=== PATIENT | female | born 1990 | race Caucasian/White ===

== ENCOUNTER → 2020-12-24 14:17 | Outpatient (BNVA) | payer MEDICAID, SELFPAY | PROVIDERS: Visit Provider Nurse Practitioner Women's Health | DX: Z34.80 Encounter for supervision of other normal pregnancy, unspecified trimester (principal) | CPT/HCPCS: 81000; 86803 ==

== ENCOUNTER → 2021-01-07 08:16 | Outpatient (BNVA) | payer MEDICAID, SELFPAY | PROVIDERS: Visit Provider Obstetrics & Gynecology | DX: O34.219 Maternal care for unspecified type scar from previous cesarean delivery (principal); Z64.1 Problems related to multiparity; O09.42 Supervision of pregnancy with grand multiparity, second trimester; Z3A.24 24 weeks gestation of pregnancy | CPT/HCPCS: 80307; 81000; 87086; 87491; 87591 ==

== ENCOUNTER → 2021-02-04 10:27 | Outpatient (BNVA) | payer MEDICAID, SELFPAY | PROVIDERS: Visit Provider Obstetrics & Gynecology | DX: O34.219 Maternal care for unspecified type scar from previous cesarean delivery (principal); Z64.1 Problems related to multiparity | CPT/HCPCS: 82950; 84315; 85007; 85025 ==

== ENCOUNTER → 2021-03-04 09:34 | Outpatient (BNVA) | payer MEDICAID, SELFPAY | PROVIDERS: Visit Provider Obstetrics & Gynecology | DX: O34.219 Maternal care for unspecified type scar from previous cesarean delivery (principal); Z64.1 Problems related to multiparity | CPT/HCPCS: 81000 ==

== ENCOUNTER → 2021-03-19 09:21 | Outpatient (BNVA) | payer MEDICAID, SELFPAY | PROVIDERS: Visit Provider Obstetrics & Gynecology | DX: Z34.80 Encounter for supervision of other normal pregnancy, unspecified trimester (principal) | CPT/HCPCS: 81000 ==

== ENCOUNTER → 2021-04-03 08:56 | Outpatient (BNVA) | payer MEDICAID, SELFPAY | PROVIDERS: Visit Provider Obstetrics & Gynecology | DX: O34.219 Maternal care for unspecified type scar from previous cesarean delivery (principal); Z64.1 Problems related to multiparity | CPT/HCPCS: 81000; 87081 ==

== ENCOUNTER → 2021-04-09 08:34 | Outpatient (BNVA) | payer MEDICAID, SELFPAY | PROVIDERS: PCP Internal Medicine; Visit Provider Obstetrics & Gynecology | DX: O34.219 Maternal care for unspecified type scar from previous cesarean delivery (principal); Z64.1 Problems related to multiparity | CPT/HCPCS: 81000 ==

== ENCOUNTER → 2021-04-16 08:51 | Outpatient (BNVA) | payer MEDICAID, SELFPAY | PROVIDERS: PCP Internal Medicine; Visit Provider Obstetrics & Gynecology | DX: O34.219 Maternal care for unspecified type scar from previous cesarean delivery (principal); Z64.1 Problems related to multiparity | CPT/HCPCS: 81000 ==

== ENCOUNTER → 2021-04-23 09:02 | Outpatient (BNVA) | payer MEDICAID, SELFPAY | PROVIDERS: PCP Internal Medicine; Visit Provider Obstetrics & Gynecology | DX: Z34.80 Encounter for supervision of other normal pregnancy, unspecified trimester (principal) | CPT/HCPCS: 81000 ==

== ENCOUNTER 2021-04-27 01:30 | Outpatient (CLI) | payer MEDICAID, SELFPAY ==
[2021-04-27] VITALS (8 sets, daily range): BP systolic 100–116; BP diastolic 55–68; PULSE 60–75; RESP 16; TEMP 35.9; BMI 31.2
--- NOTE | 2021-05-07 13:11 | PC.NURSE ---
Admission order entered at this time. Discharge order was placed at time of visit.
== END 2021-04-27 04:15 | disposition home or self-care (01) ==
LOC: OPOB 01:33 → OBGYN 01:36
PROVIDERS: PCP Internal Medicine; Visit Provider Obstetrics & Gynecology
DX: O26.899 Other specified pregnancy related conditions, unspecified trimester (principal); Z3A.00 Weeks of gestation of pregnancy not specified; R10.9 Unspecified abdominal pain
CPT/HCPCS: 59025; 99211

== ENCOUNTER → 2021-04-30 13:44 | Outpatient (BNVA) | payer MEDICAID, SELFPAY | PROVIDERS: PCP Internal Medicine; Visit Provider Obstetrics & Gynecology | DX: Z34.80 Encounter for supervision of other normal pregnancy, unspecified trimester (principal) | CPT/HCPCS: 81000 ==

== ENCOUNTER 2021-05-03 01:30 | Inpatient (IN) | payer MEDICAID, SELFPAY ==
[2021-05-02 21:04] VITALS: TEMP 36.2
[2021-05-02 21:05] VITALS: BP 105/55; PULSE 71
[2021-05-02 22:19] VITALS: BMI 31.7
[2021-05-03] VITALS (22 sets, daily range): BP systolic 93–140; BP diastolic 51–77; PULSE 56–88; RESP 15–16; TEMP 36.1–37.6
[2021-05-03 02:45] LABS: Basophils # 0.1 10^3/uL (0.0-0.1); Basophils % 0.6 %; Eosinophils # 0.1 10^3/uL (0.0-0.8); Eosinophils % 0.8 %; Hematocrit 37.2 % (37.0-47.0); Hemoglobin 12.4 g/dL (11.5-15.3); Lymphocytes # 1.9 10^3/uL (0.8-4.8); Lymphocytes % 19.5 %; Mean Corpuscular HGB Conc 33.3 g/dL (30.0-36.0); Mean Corpuscular Hemoglobin 31.3 pg (28.0-34.0); Mean Corpuscular Volume 93.9 fL (81-99); Mean Platelet Volume 13.7 fL (7.4-10.4); Monocytes # 0.6 10^3/uL (0.2-0.9); Monocytes % 5.6 %; Neutrophils # 7.08 10^3/uL (1.8-7.7); Neutrophils % 72.6 %; Nucleated Red Blood Cells % 0 %; Platelet Count 105 10^3/cmm (130-400); Red Blood Count 3.96 10^6/uL (4.1-5.3); Red Cell Distribution Width 12.7 % (12.1-15.1); White Blood Count 9.8 10^3/uL (4.0-10.0)
--- NOTE | 2021-05-03 02:58 | ANES.PREANE2 ---
Pre-Anesthetic Assessment Pre-Anesthetic Assessment: Height/Weight: Height 1.63 m Weight 83.915 kg Temp Pulse BP 97.5 F L 69 99/56 05/03/21 01:18 05/03/21 01:18 05/03/21 01:18 Preop Diagnosis: IUP Proposed Procedure: Epidural Familial anesthetic complications: None Was Beta Nba taken within 24 hours: N/A Was Clonidine taken within 24 hours: N/A Last intake: Solids > 8 hrs Drinking water throughout day Social: Social History: No alcohol and No tobacco Exam: Pre-Anes Outpt Exam: alert, oriented x 3, clear to auscultation bilaterally and regular rate & rhythm Airway: Cervical ROM: WNL MP: 1 Dentition: Full Anesthetic Plan: ASA status: 2 Anesthesia: Regional (specify below) Other: Desires natural , epidural prn, consented for spinal Risk of > 500 ml blood loss (7ml/kg in children): Yes, adequate IV access and fluids planned PFSH Anesthesia PFSH: Medical History No pertinent past medical history neghx: htn,dm,thyroid,dvt/pe,herpes ----denies partner with herpes PCP: Dr. Mcgregor Surgical History Hx of section (~2015) Hx of cholecystectomy (~2012) Hx of wisdom tooth extraction (~2014) Family History Denies family history of Colon cancer Ovarian cancer Diabetes Heart disease Hypercholesteremia Breast cancer Hypertension Uterine cancer Thyroid disease Stroke Social History Smoking and tobacco status: never smoked Alcohol intake: never Female Reproductive History: : 10 Data Anesthesia CBC & Chem 7: 05/03/21 01:55 Other Labs: Laboratory Results - last 48 hr 05/03/21 01:55 WBC 9.8 RBC 3.96 L Hgb 12.4 Hct 37.2 MCV 93.9 MCH 31.3 MCHC 33.3 RDW 12.7 Plt Count 105 L MPV 13.7 H Neut % (Auto) 72.6 Lymph % (Auto) 19.5 Alpine % (Auto) 5.6 Eos % (Auto) 0.8 Baso % (Auto) 0.6 Neut # (Auto) 7.08 Lymph # (Auto) 1.9 Alpine # (Auto) 0.6 Eos # (Auto) 0.1 Baso # (Auto) 0.1 Nucleated RBC % (auto) 0 Nucleated RBCs # 0.0 Cardiac Studies: No Data to Display
--- NOTE | 2021-05-03 05:07 | PM.DELIVERY ---
Delivery Note: Date of delivery: May 03, 2021 - PRE-DELIVERY DIAGNOSIS: 30-year-old 10 para 4-0-5-4 at 40 weeks and 4 days gestation Active labor Previous delivery x1 desiring trial of labor Grand multiparity with this delivery POST-DELIVERY DIAGNOSIS: Vaginal after PROCEDURE: Vaginal after on 05/03/2021 ANESTHESIA: Local anesthesia with 2% lidocaine DELIVERING PHYSICIAN: Janee Li FACSTEPHAN PRE-DELIVERY COURSE: Ms. De Jesus is a 30-year-old 10 para 4-0-5-4 at 40 weeks and 3 days gestation who presented to labor and delivery on 05/02/2021 with reports of contractions. She has a history significant for a previous delivery and has had 1 successful and desired trial of labor with this delivery as well. She had no complications in the . -When she presented to labor and delivery she was noted to be 3 cm 60% and -2 station and an hour later she was 4 cm 60% and -2 station. She was observed for 2 more hours and was noted to be 5 cm 60% and -2 station at 11 PM. She was admitted in active labor. On exam at 2 AM she was noted to be 6 to 7 cm 90% and -1 station. tracing thus far was category 1 and she was darrin every 2 to 5 minutes and was breathing through them. She did not want an epidural. Artificial rupture of membranes was performed at 3:56 AM with clear fluid and she was 7 to 8 cm, 90% and 0 station at this time. She made rapid cervical change and was fully dilated at 4:23 AM ready to push DELIVERY NOTE: She was set up in lithotomy position and was pushing effectively. She was noted to be +3 station and continued pushing well. The head delivered in BEKA position, tight nuchal cord x1 was present which was unable to be reduced. The shoulders and rest of the body followed with her next push and delivered through the cord without any difficulty. The baby's mouth and nose were suctioned and the baby was placed on the mother's belly. the cord was clamped and cut. The placenta delivered spontaneously intact with membranes and was discarded. The fundus was noted to be firm and well contracted. The vagina and cervix were inspected and no cervical or sulcal lacerations were noted. A first-degree vaginal laceration was noted which was repaired with 3-0 Vicryl in a [id number] suture after infiltrating the area with lidocaine. Good hemostasis and reapproximation was obtained. Baby girl, Rosa born at 4:24 AM on 05/03/2020 with 7/9, weighing 8 pounds 0 ounces, 3615 g, 21 inches long. Placenta was delivered spontaneously intact with membranes at 4:26 AM.. Cotyledon were intact , centrally inserted umbilical cord with 3 vessels noted. Estimated blood loss 200 mL. Complications-none, both baby and mother were left to recover in a stable condition. This documentation was created by [employer] supervisor contact lens software (known for inherent supervisor contact lens error). Every effort was made to assure accuracy of supervisor contact lens. Any obvious errors or omissions should be clarified with the author of the document. Coding Level of Care Code Acute Primary Special Educator for Christopher Marie
--- NOTE | 2021-05-03 07:00 | PC.NURSE ---
Pt up to bathroom without difficulty. Void 400mL. Amina care/dermoplast. Pad/gown changed. Complete linen change.
[2021-05-03] MEDS: lanolin oint 7 gm 1 APPLIC TOPICAL (07:17)
[2021-05-03] MEDS: benzocaine-menthol 78 gm Canister 1 SPRAY TOPICAL (07:18)
[2021-05-03] MEDS: docusate sodium 100 mg Capsule PO (09:00)
[2021-05-03] MEDS: prenatal vitamin Capsule 1 CAP PO (09:00)
[2021-05-03] MEDS: ibuprofen 800 mg tablet PO ×3 (09:00→20:53)
[2021-05-03 17:31] LABS: Hematocrit 36.8 % (37.0-47.0); Hemoglobin 12.4 g/dL (11.5-15.3); Mean Corpuscular HGB Conc 33.7 g/dL (30.0-36.0); Mean Corpuscular Hemoglobin 31.9 pg (28.0-34.0); Mean Corpuscular Volume 94.6 fL (81-99); Mean Platelet Volume 13.2 fL (7.4-10.4); Platelet Count 111 10^3/cmm (130-400); Red Blood Count 3.89 10^6/uL (4.1-5.3); Red Cell Distribution Width 12.6 % (12.1-15.1); White Blood Count 9.4 10^3/uL (4.0-10.0)
[2021-05-04 05:12] VITALS: BP 104/57; PULSE 71
--- NOTE | 2021-05-04 07:09 | PM.OBGYDC ---
Discharge Providers INDUSTRIAL ORGANIZATION MANAGER Date of Admission: 05/03/21 01:30 Date of Discharge: 05/04/21 Attending Provider at Admission: Janee Quinn MD Attending Provider at Discharge: Janee Quinn MD Primary Care Provider: PRE-DELIVERY DIAGNOSIS: 30-year-old 10 para 4-0-5-4 at 40 weeks and 4 days gestation Active labor GBS negative Previous delivery x1 desiring trial of labor Grand multiparity with this delivery POST-DELIVERY DIAGNOSIS: Vaginal after PROCEDURE: Vaginal after on 05/03/2021 ANESTHESIA: Local anesthesia with 2% lidocaine DELIVERING PHYSICIAN: Janee Li FACOG PRE-DELIVERY COURSE: Ms. De Jesus is a 30-year-old 10 para 4-0-5-4 at 40 weeks and 3 days gestation who presented to labor and delivery on 05/02/2021 with reports of contractions. She has a history significant for a previous delivery and has had 1 successful and desired trial of labor with this delivery as well. She had no complications in the . -When she presented to labor and delivery she was noted to be 3 cm 60% and -2 station and an hour later she was 4 cm 60% and -2 station. She was observed for 2 more hours and was noted to be 5 cm 60% and -2 station at 11 PM. She was admitted in active labor. On exam at 2 AM she was noted to be 6 to 7 cm 90% and -1 station. tracing thus far was category 1 and she was darrin every 2 to 5 minutes and was breathing through them. She did not want an epidural. Artificial rupture of membranes was performed at 3:56 AM with clear fluid and she was 7 to 8 cm, 90% and 0 station at this time. She made rapid cervical change and was fully dilated at 4:23 AM ready to push DELIVERY NOTE: She was set up in lithotomy position and was pushing effectively. She was noted to be +3 station and continued pushing well. The head delivered in BEKA position, tight nuchal cord x1 was present which was unable to be reduced. The shoulders and rest of the body followed with her next push and delivered through the cord without any difficulty. The baby's mouth and nose were suctioned and the baby was placed on the mother's belly. the cord was clamped and cut. The placenta delivered spontaneously intact with membranes and was discarded. The fundus was noted to be firm and well contracted. The vagina and cervix were inspected and no cervical or sulcal lacerations were noted. A first-degree vaginal laceration was noted which was repaired with 3-0 Vicryl in a [id number] suture after infiltrating the area with lidocaine. Good hemostasis and reapproximation was obtained. Baby girl, Rosa born at 4:24 AM on 05/03/2020 with 7/9, weighing 8 pounds 0 ounces, 3615 g, 21 inches long. Placenta was delivered spontaneously intact with membranes at 4:26 AM.. Cotyledon were intact , centrally inserted umbilical cord with 3 vessels noted. Estimated blood loss 200 mL. Complications-none, both baby and mother were left to recover in a stable condition. HOSPITAL COURSE: She underwent an uncomplicated vaginal after on 05/03/2021. She did well on day 0 and was ambulating well, tolerating regular diet, voiding freely, passing flatus. She was breast-feeding without difficulty and bonding well with her daughter. Pain was well-controlled with by mouth pain medication. She denied nausea, vomiting, fever, chills, shortness of breath, leg pain. She had moderate vaginal bleeding. On day # 1 she continued to do well with stable vital signs and stable hemoglobin at 12.4. She was discharged home on day 1 in a stable condition, as she desired early discharge. Warning signs for endometritis, mastitis, DVT/PE were reviewed with her. Post delivery activity restrictions were also reviewed with her at all her questions were answered to her satisfaction. She plans on using natural methods for contraception. EXAM AT DISCHARGE: Gen.: No acute distress Heart: S1-S2 heard, regular rate and rhythm Lungs: Clear to auscultation bilaterally Abdomen: Soft, fundus firm below umbilicus Legs: No calf tenderness, trace bilateral pitting pedal edema. CONDITION AT DISCHARGE: Stable This documentation was created by [employer] delivery driver software (known for inherent delivery driver error). Every effort was made to assure accuracy of delivery driver. Any obvious errors or omissions should be clarified with the author of the document. Reason for Visit Reason for Visit: contractions Information Peripartum Data: Infant Delivery Method: Vaginal Discharge Data Data Completed and Pending: Labs from last 24 hours 05/03/21 17:10 WBC 9.4 RBC 3.89 L Hgb 12.4 Hct 36.8 L MCV 94.6 MCH 31.9 MCHC 33.7 RDW 12.6 Plt Count 111 L MPV 13.2 H Vitals: Last Vital Signs Temp 98.5 F 05/03/21 16:33 Pulse 71 05/04/21 05:12 Resp 16 05/03/21 16:33 BP 104/57 05/04/21 05:12 Discharge Plan Discharge Prescriptions: No Action prenat.vits,jalil,oak-mjmq-xjgjn Tablet 1 tab PO DAILY RF: 0 Discharge Attestations INDUSTRIAL ORGANIZATION MANAGER Time Spent in Discharge Care*: greater than 30 min Coding Level of Care Code Acute Readers' Advisory Service Librarian for Christopher Marie
[2021-05-04] MEDS: ibuprofen 800 mg tablet PO (08:06)
[2021-05-04] MEDS: prenatal vitamin Capsule 1 CAP PO (08:07)
[2021-05-04] MEDS: docusate sodium 100 mg Capsule PO (08:07)
[2021-05-04 09:14] VITALS: TEMP 36.1
[2021-05-04 09:15] VITALS: BP 113/66; PULSE 72
[2021-05-04 09:20] VITALS: RESP 16
[2021-05-04 09:21] VITALS: RESP 16
== END 2021-05-04 09:43 | disposition home or self-care (01) | DRG 806 ==
LOC: OPOB 02:02 → OBGYN 02:02
PROVIDERS: Admitting Provider Obstetrics & Gynecology; PCP Internal Medicine; Visit Provider Obstetrics & Gynecology
DX: O34.219 Maternal care for unspecified type scar from previous cesarean delivery (principal); O71.4 Obstetric high vaginal laceration alone; Z37.0 Single live birth; O48.0 Post-term pregnancy; O69.81X0 Labor and delivery complicated by cord around neck, without compression, not applicable or unspecified; Z3A.40 40 weeks gestation of pregnancy; Z64.1 Problems related to multiparity
CPT/HCPCS: 36415; 59025; 59409; 85025; 85027; 86850; 86900; 99211

== ENCOUNTER → 2021-10-12 11:37 | Outpatient (BNVA) | payer MEDICAID, SELFPAY | PROVIDERS: PCP Internal Medicine; Visit Provider Obstetrics & Gynecology | DX: Z12.4 Encounter for screening for malignant neoplasm of cervix (principal) | CPT/HCPCS: 87624 ==

== ENCOUNTER 2021-12-25 16:32 | Emergency (ER) | payer MEDICAID, SELFPAY ==
[2021-12-25 16:39] VITALS: BP 121/61; PULSE 63; RESP 16; TEMP 36.6; O2SAT 96; BMI 27.4
--- NOTE | 2021-12-25 17:17 | ED_ITS ---
HPI - Wound/Laceration General: Chief Complaint: Wound/Laceration Stated Complaint: R cut foot bleeding Time Seen by Provider: 12/25/21 17:01 History of Present Illness: Patient is a 31-year-old female comes to the ED with a laceration on top of right foot. Injury occurred several hours prior to arrival. Patient says she was working on cutting some fabric and small circular blade that she uses dropped and hit her mid foot causing a laceration. She immediately rinsed it off with some cold water and placed a bandage on it. She states she is up-to-date on her tetanus. Associated symptoms: Denies chills, fever(s), nausea or vomiting Review of Systems Const: Denies: fever(s), chills or fatigue Eyes: Denies: change in vision or eye discomfort ENMT: Denies: throat pain, odynophagia, nasal discharge or nasal congestion Card: Denies: chest pain, palpitations, edema, swelling of feet/ankles, dyspnea on exertion or orthopnea Resp: Denies: dyspnea, productive cough or non-productive cough GI: Denies: abdominal pain, nausea, vomiting, diarrhea, constipation or hematochezia : Denies: flank pain, dysuria or hematuria Musc: Denies: neck pain, back pain or extremity swelling Skin/Breast: Reports: new lesions (laceration to right foot); Denies: rash Neuro: Denies: headache(s), numbness in extremities or weakness in extremities COUNT INCLUDES THE [facility] ED PFSH: Medical History No pertinent past medical history neghx: htn,dm,thyroid,dvt/pe,herpes ----denies partner with herpes PCP: Dr. Mcgregor Surgical History Hx of section (~2015) Hx of cholecystectomy (~2012) Hx of wisdom tooth extraction (~2014) Family History Denies family history of Colon cancer Ovarian cancer Diabetes Heart disease Hypercholesteremia Breast cancer Hypertension Uterine cancer Thyroid disease Stroke Social History Smoking and tobacco status: never smoked Alcohol intake: never Physical Exam Const: COMMON NORMALS: no acute distress, patient oriented x3, healthy appearing and alert GENERAL APPEARANCE: cooperative and comfortable HENMT: COMMON NORMALS: normocephalic HEAD & SCALP: normocephalic MOUTH: Normal oral and palatal mucosa present THROAT: posterior oropharynx normal and uvula midline Neck/C-Spine: COMMON NORMALS: supple GENERAL: Yes normal visual inspection Resp: COMMON NORMALS: normal respiratory effort, No retractions, No use of accessory muscles and clear to auscultation bilaterally AUSCULTATION: clear to auscultation bilaterally Cardio: COMMON NORMALS: regular rate, regular rhythm, S1 normal heart sound pr esent, S2 normal heart sound present, No gallops present (Cardio), No clicks present (Cardio), No murmurs present (Cardio) and Peripheral pulses 2+ throughout RATE: regular rate RHYTHM: regular rhythm HEART SOUNDS: S1 normal heart sound present and S2 normal heart sound present PERIPHERAL PULSES: Peripheral pulses 2+ throughout GI: COMMON NORMALS: Normal to inspection, nondistended, normoactive bowel sounds present, Soft to palpation, non-tender and no masses PALPATION: Yes Soft to palpation : COMMON NORMALS: Yes no CVA tenderness BLADDER/KIDNEY EXAM: Yes no CVA tenderness Back/Pelvis: COMMON NORMALS: no CVA tenderness Neuro: COMMON NORMALS: patient oriented x3 and moves all extremities SENSORIUM/ORIENTATION: Yes alert Skin: NARRATIVE SKIN EXAM: Right foot-superficial linear 0.5 cm laceration at midfoot region. GENERAL SKIN EXAM: dry skin Procedures Laceration Laceration 1: Site: lower extremity (foot) Side (If applicable): right Size (cm): 0.5 Description: linear and clean Depth: simple, single layer Local Anesthetic: lidocaine 1% Amount of anesthesia used (mL): 5 Pre-repair: irrigated extensively (Irrigated extensively with normal saline. And skin cleaned with iodine swab) Skin layer closed with: nylon Size (cm): 4-0 Number of sutures: 2 Technique: simple, interrupted Course Vital Signs: Vital signs: Vital Signs Temperature 97.9 F 12/25/21 16:39 Pulse Rate 63 12/25/21 16:39 Respiratory Rate 16 12/25/21 16:39 Blood Pressure 121/61 12/25/21 16:39 Pulse Oximetry 96 12/25/21 16:39 MDM - Wound/Laceration Medical Decision Making Patient is a 31-year-old female comes to the ED with a laceration to right foot. Laceration is small and superficial and superficial. Patient is up-to-date on her tetanus. Laceration site was irrigated extensively with normal saline and skin cleaned with iodine swab. Lidocaine 1% was used as local and 2 sutures were placed to close laceration site. Patient was discharged home and told to follow-up with PCP to have sutures removed in 7 to 10 days. Return to ED precautions given. Patient understood and agreed with plan. Discharge Plan Discharge Patient Disposition: Home Clinical Impression: Laceration of foot Qualifiers: Encounter type: initial encounter Laterality: right Qualified Code(s): S91.311A - Laceration without foreign body, right foot, initial encounter Condition: Stable Prescriptions: No Action No Known Home Medications 0RF Discharge Orders: Discharge ED (Routine); Ordered 12/25/21 Ordered By: Pranav Jefferson Referrals: Maria Ines Mcgregor MD [Primary Care Provider] - Discharge Diet: Regular Discharge Activity: Increase activity as tolerated Patient Instructions: Laceration (DC) Activity Restrictions/Additional Instructions: Keep laceration site clean and dry for the next 24 hours. Clean with soapy water daily then apply triple antibiotic ointment and bandage. Watch for signs of infection such as redness, warmth, increased tenderness and puslike drainage. If you see the signs of infection return to the ED, urgent care or PCP for reevaluation. call your PCP to schedule a follow-up appointment for reevaluation and suture removal in about 7- 10 days. Follow discharge plans as discussed. You can return to the ED if symptoms worsen. Coding Level of Care Code ED Step Down Nurse for Christopher Marie Exam Comprehensive
[2021-12-25] MEDS: lidocaine 1% INJ 20 mL INJECTION (18:04)
[2021-12-25] MEDS: neomycin-poly-bacitracin oint 0.9 gm Pkt 1 APPLIC TOPICAL (18:04)
== END 2021-12-25 18:05 | disposition home or self-care (01) ==
PROVIDERS: Emergency Provider Physician Assistant; PCP Internal Medicine
DX: S91.311A Laceration without foreign body, right foot, initial encounter (principal); W26.0XXA Contact with knife, initial encounter
CPT/HCPCS: 99283

== ENCOUNTER → 2022-08-25 11:31 | Outpatient (BNVA) | payer MEDICAID, SELFPAY | PROVIDERS: PCP Internal Medicine; Visit Provider Family Medicine | DX: N80.9 Endometriosis, unspecified (principal); Z39.2 Encounter for routine postpartum follow-up; R53.83 Other fatigue; R23.2 Flushing; F41.9 Anxiety disorder, unspecified | CPT/HCPCS: 80053; 82672; 83540; 84144; 84403; 84443; 85025 ==

== ENCOUNTER 2022-10-22 10:11 | Outpatient (CLI) | payer MEDICAID, SELFPAY ==
--- NOTE | 2022-10-22 10:22 | US_ITS ---
WS: [id number] Transvaginal and transabdominal PELVIC ULTRASOUND HISTORY: N80.9 - Endometriosis, unspecified COMPARISON: None available. Uterus: 7.7 cm x 6.1 cm x 4.4 cm. Very slightly retroflexed uterus. No fibroid or mass. Endometrium: 1.1 cm. Normal homogeneity and size. Right ovary: 3.7 cm x 2.6 cm x 2.4 cm; no solid or cystic mass. Thick-walled corpus luteal cyst RIGHT ovary with crenulated oglesby suggesting collapsing corpus luteum measuring 1.8 x 1.8 x 1.8 cm. No maykel id mass or cyst. Left ovary: 2.6 cm x 3.6 cm x 1.5 cm; no solid or cystic mass. Normal vascularity. Small follicle. Ma ximum diameter 1.2 cm. No free fluid in the cul-de-sac. US/US pelvic complete* [id number] IMPRESSION: 1. Normal endometrium. 2. No endometriomas are identified. 3. No solid ovarian mass or adnexal mass.
== END 2022-10-22 10:12 | disposition home or self-care (01) ==
LOC: RAD 10:11
PROVIDERS: PCP Internal Medicine; Visit Provider Family Medicine
DX: N80.9 Endometriosis, unspecified (principal)
CPT/HCPCS: 76856

== ENCOUNTER → 2023-06-21 10:17 | Outpatient (BNVA) | payer MEDICAID, SELFPAY | PROVIDERS: PCP Internal Medicine; Visit Provider Obstetrics & Gynecology | DX: O26.90 Pregnancy related conditions, unspecified, unspecified trimester (principal); Z3A.00 Weeks of gestation of pregnancy not specified | CPT/HCPCS: 81025 ==

== ENCOUNTER → 2023-07-08 09:50 | Outpatient (BNVA) | payer MEDICAID, SELFPAY | PROVIDERS: PCP Internal Medicine; Visit Provider Nurse Practitioner Women's Health | DX: Z34.80 Encounter for supervision of other normal pregnancy, unspecified trimester (principal) | CPT/HCPCS: 81000 ==

== ENCOUNTER → 2023-07-19 15:28 | Outpatient (BNVA) | payer MEDICAID, SELFPAY | PROVIDERS: PCP Internal Medicine; Visit Provider Nurse Practitioner Women's Health | DX: Z36.87 Encounter for antenatal screening for uncertain dates (principal) | CPT/HCPCS: 76801 ==

== ENCOUNTER → 2023-08-11 12:00 | Outpatient (BNVA) | payer MEDICAID, SELFPAY | PROVIDERS: PCP Internal Medicine; Visit Provider Obstetrics & Gynecology | DX: Z34.80 Encounter for supervision of other normal pregnancy, unspecified trimester (principal) | CPT/HCPCS: 80307; 81000; 85027; 86592; 86762; 86803; 86850; 86900; 87086; 87340; 87491; 87591; 87624; 87806 ==

== ENCOUNTER → 2023-08-31 10:22 | Outpatient (BNVA) | payer MEDICAID, SELFPAY | PROVIDERS: PCP Internal Medicine; Visit Provider Nurse Practitioner Women's Health | DX: Z34.80 Encounter for supervision of other normal pregnancy, unspecified trimester (principal); D69.6 Thrombocytopenia, unspecified; Z98.891 History of uterine scar from previous surgery; R87.612 Low grade squamous intraepithelial lesion on cytologic smear of cervix (LGSIL); R51.9 Headache, unspecified | CPT/HCPCS: 81000; 85025; 87491; 87591 ==

== ENCOUNTER → 2023-09-28 14:31 | Outpatient (BNVA) | payer MEDICAID, SELFPAY | PROVIDERS: PCP Internal Medicine; Visit Provider Nurse Practitioner Women's Health | DX: Z34.82 Encounter for supervision of other normal pregnancy, second trimester (principal) | CPT/HCPCS: 76805 ==

== ENCOUNTER → 2023-10-03 08:19 | Outpatient (BNVA) | payer MEDICAID, SELFPAY | PROVIDERS: PCP Internal Medicine; Visit Provider Obstetrics & Gynecology | DX: Z34.80 Encounter for supervision of other normal pregnancy, unspecified trimester (principal) | CPT/HCPCS: 81000 ==

== ENCOUNTER → 2023-10-26 10:00 | Outpatient (BNVA) | payer MEDICAID, SELFPAY | PROVIDERS: PCP Internal Medicine; Visit Provider Nurse Practitioner Women's Health | DX: Z34.80 Encounter for supervision of other normal pregnancy, unspecified trimester (principal); D69.6 Thrombocytopenia, unspecified; Z98.891 History of uterine scar from previous surgery; R87.612 Low grade squamous intraepithelial lesion on cytologic smear of cervix (LGSIL) | CPT/HCPCS: 82950; 84315; 85025 ==

== ENCOUNTER → 2023-11-21 08:22 | Outpatient (BNVA) | payer MEDICAID, SELFPAY | PROVIDERS: PCP Internal Medicine; Visit Provider Obstetrics & Gynecology | DX: Z34.80 Encounter for supervision of other normal pregnancy, unspecified trimester (principal); D69.6 Thrombocytopenia, unspecified | CPT/HCPCS: 81000; 85025 ==

== ENCOUNTER → 2023-12-07 08:25 | Outpatient (BNVA) | payer MEDICAID, SELFPAY | PROVIDERS: PCP Internal Medicine; Visit Provider Obstetrics & Gynecology | DX: Z34.80 Encounter for supervision of other normal pregnancy, unspecified trimester (principal) | CPT/HCPCS: 81000 ==

== ENCOUNTER → 2023-12-19 08:13 | Outpatient (BNVA) | payer MEDICAID, SELFPAY | PROVIDERS: PCP Internal Medicine; Visit Provider Obstetrics & Gynecology | DX: Z34.80 Encounter for supervision of other normal pregnancy, unspecified trimester (principal) | CPT/HCPCS: 81000 ==

== ENCOUNTER → 2024-01-04 08:04 | Outpatient (BNVA) | payer MEDICAID, SELFPAY | PROVIDERS: PCP Internal Medicine; Visit Provider Nurse Practitioner Women's Health | DX: Z34.80 Encounter for supervision of other normal pregnancy, unspecified trimester (principal); D69.6 Thrombocytopenia, unspecified; Z98.891 History of uterine scar from previous surgery; R87.612 Low grade squamous intraepithelial lesion on cytologic smear of cervix (LGSIL); R51.9 Headache, unspecified | CPT/HCPCS: 81000; 85025 ==

== ENCOUNTER → 2024-01-19 13:34 | Outpatient (BNVA) | payer MEDICAID, SELFPAY | PROVIDERS: PCP Internal Medicine; Visit Provider Obstetrics & Gynecology | DX: Z34.80 Encounter for supervision of other normal pregnancy, unspecified trimester (principal) | CPT/HCPCS: 76816; 81000; 87081 ==

== ENCOUNTER → 2024-01-26 07:45 | Outpatient (BNVA) | payer MEDICAID, SELFPAY | PROVIDERS: PCP Internal Medicine; Visit Provider Obstetrics & Gynecology | DX: Z34.80 Encounter for supervision of other normal pregnancy, unspecified trimester (principal) | CPT/HCPCS: 81000 ==

== ENCOUNTER → 2024-02-02 07:59 | Outpatient (BNVA) | payer MEDICAID, SELFPAY | PROVIDERS: PCP Internal Medicine; Visit Provider Obstetrics & Gynecology | DX: Z34.80 Encounter for supervision of other normal pregnancy, unspecified trimester (principal) | CPT/HCPCS: 81000 ==

== ENCOUNTER 2024-02-07 08:30 | Inpatient (IN) | payer MEDICAID, SELFPAY ==
[2024-02-07] VITALS (21 sets, daily range): BP systolic 90–196; BP diastolic 48–132; PULSE 59–84; RESP 15–16; TEMP 36.8; O2SAT 97–99; BMI 34.4
--- NOTE | 2024-02-07 09:03 | P.ANESASSM_ITS ---
Pre-Anesthetic Assessment Height/Weight: Height 1.63 m Weight 91.172 kg Pulse BP O2 Del Method 77 113/68 Room Air 02/07/24 08:50 02/07/24 08:50 02/07/24 08:48 Social No alcohol and No tobacco Exam alert, oriented x 3, clear to auscultation bilaterally and regular rate & rhythm Airway Submandibular: within normal limits Cervical ROM: within normal limits Mallampati: Class I Anesthetic Plan ASA status: 2E Anesthesia: Anesthesia Evaluation and Regional (specify below) Other: spinal block discussed Medications/Allergies Home Medications Medication Instructions Recorded Confirmed Last Taken Type docosahexaenoic acid 200 mg mg PO 07/08/23 02/02/24 Unknown History capsule ( DHA) promethazine 25 mg tablet 25 mg PO Q6H PRN headache #30 tabs 09/02/23 02/02/24 Unknown Rx Allergies Allergy/AdvReac Type Severity Reaction Status Date / Time Penicillins Allergy Hives Verified 02/02/24 11:11 sulfamethoxazole Allergy headaches, Verified 02/02/24 11:11 [From Bactrim] dizziness, tingling in fingers trimethoprim [From Bactrim] Allergy headaches, Verified 02/02/24 11:11 dizziness, tingling in fingers PFSH Anesthesia Medical History Endometriosis No pertinent past medical history neghx: htn,dm,thyroid,dvt/pe,herpes ----denies partner with herpes PCP: Dr. Mcgregor Surgical History Hx of cholecystectomy (~2012) Hx of wisdom tooth extraction (~2014) Hx of section (~2015) Family History Denies family history of Colon cancer Ovarian cancer Diabetes Heart disease Hypercholesteremia Breast cancer Hypertension Uterine cancer Thyroid disease Stroke Female Reproductive History : 12 Data Anesthesia 02/07/24 08:40 Cardiac Studies: 2 No Data to Display
[2024-02-07 09:09] LABS: Basophils % 0.5 %; Eosinophils # 0.1 10^3/uL (0.0-0.8); Eosinophils % 0.6 %; Hematocrit 45.5 % (36-47); Lymphocytes # 1.5 10^3/uL (0.8-4.8); Lymphocytes % 17.4 %; Mean Corpuscular HGB Conc 33.8 g/dL (30-55); Mean Corpuscular Hemoglobin 31.6 pg (27-33); Mean Corpuscular Volume 93.4 fl (85-98); Mean Platelet Volume 12.6 fL (7.4-10.4); Monocytes # 0.5 10^3/uL (0.2-0.9); Monocytes % 5.7 %; Neutrophils # 6.44 10^3/uL (1.8-7.7); Neutrophils % 74.9 %; Nucleated Red Blood Cells % 0 %; Platelet Count 134 10^3/cmm (157-399); Red Blood Count 4.87 10^6/uL (3.85-5.65); Red Cell Distribution Width 13.6 % (12.1-15.1)
[2024-02-07] MEDS: famotidine 20 mg/2 mL INJ IVP (09:14)
[2024-02-07] MEDS: citric acid-sodium citrate 30 mL UDC PO (09:14)
[2024-02-07] MEDS: clindamycin 900 MG/50 ML PREMIX 100 MG IV (09:14)
[2024-02-07] MEDS: metoclopramide 5 mg/mL SDV 2 mL 10 MG IVP (09:14)
[2024-02-07] MEDS: lactated ringers 1,000 ML 999 ML IV (09:15)
[2024-02-07] MEDS: gentamicin inj 140 MG in sodium chloride 0.9% (100 ml) 100 ML 103.5 MG IV (09:26)
--- NOTE | 2024-02-07 10:40 | P.HP_ITS ---
Providers/Chief Complaint 2 Admitting Physician: Alvarez Chester MD Primary LOGISTICS MANAGEMENT SPECIALIST: José Antonio Cardenas MD Primary Care Provider: Maria Ines Mcgregor MD Chief Complaint: Possible ROM HPI LOGISTICS MANAGEMENT SPECIALIST History of Present Illness 33 y.o. A6 L5 EDC February 13, 2024 At 39 w 1 d Presented to L&D c/o painful uterine contractions Present Details : 12 Para: 5 Labs Rubella: Immune RPR: Negative GBS: Negative Medications/Allergies Home Medications Medication Instructions Recorded Confirmed Last Taken Type docosahexaenoic acid 200 mg mg PO 07/08/23 02/02/24 Unknown History capsule ( DHA) promethazine 25 mg tablet 25 mg PO Q6H PRN headache #30 tabs 09/02/23 02/02/24 Unknown Rx Allergies Allergy/AdvReac Type Severity Reaction Status Date / Time Penicillins Allergy Hives Verified 02/02/24 11:11 sulfamethoxazole Allergy headaches, Verified 02/02/24 11:11 [From Bactrim] dizziness, tingling in fingers trimethoprim [From Bactrim] Allergy headaches, Verified 02/02/24 11:11 dizziness, tingling in fingers PFSH LOGISTICS MANAGEMENT SPECIALIST 2 PFSH: Medical History Endometriosis No pertinent past medical history neghx: htn,dm,thyroid,dvt/pe,herpes ----denies partner with herpes PCP: Dr. Mcgregor Surgical History Hx of cholecystectomy (~2012) Hx of wisdom tooth extraction (~2014) Hx of section (~2015) Family History Denies family history of Colon cancer Ovarian cancer Diabetes Heart disease Hypercholesteremia Breast cancer Hypertension Uterine cancer Thyroid disease Stroke History History History 2 12 Term 5 0 Miscarriages/Ectopic 6 Living Children 5 Care ANNA Calculator 2 Estimated Delivery Date Method Current WG Current Estimate 02/13/24 LMP (Certain) 39w 1d Other Estimates 02/09/24 Ultrasound #1 39w 5d Specific Issues/Plans * SUCCESSFUL X 2 ; planning * PREVIOUS 2015 * Low Platelets 150; recheck at 24, 28, 32, 36 Vitals/I&O/Wt Last Vital Signs Pulse 82 02/07/24 09:10 BP 112/67 02/07/24 09:10 O2 Del Method Room Air 02/07/24 08:48 Weight last 48 hrs Weight 201 lb Physical Exam 2 Narrative: VS normal Abd: nontender Cervix: 6 cm / presenting part breech Ext: normal Urinary Catheter Management: [place]: Cath Placed During This Visit: yes Urinary Catheter Date of Insertion: 02/07/24 Urinary Catheter Time of Insertion: 09:38 Data 02/07/24 08:40 Results Labs OB ([facility]): 2 Obstetrics US 01/19/24 Blood Type O Positive 02/07/24 Antibody Screen Negative 02/07/24 Hct 45.5 % (36-47) 02/07/24 Hgb 15.40 g/dL (11.27-16.99) 02/07/24 Rho(D) Type Rh positive 02/07/24 Plt Count 134 10^3/cmm (157-399) L 02/07/24 Hep Bs Antigen Non-reactive (Nonreactive) 08/11/23 Hepatitis C Antibody Non-reactive (Nonreactive) 08/11/23 Rubella IgG Antibody 64.2 IU/mL (0.0-10.0) H 08/11/23 RPR Nonreactive (Nonreactive) 08/11/23 HIV 1&2 Ab & HIV 1 Ag Non-reactive (Non-Reactiv) 08/11/23 TSH 1.14 uIU/mL (0.27-4.20) 08/25/22 C.trachomatis RNA (TMA) Not detected (NOT DETECTED) N.gonorrhoeae RNA (TMA) Not detected (NOT DETECTED) T. vaginalis Amp RNA Not detected (NOT DETECTED) 08/31/23 Chlamydia/GC Comment See note 08/31/23 Cystic Fibrosis Screen Negative 08/11/23 Glucose 1 Hr 50 gm 82 mg/dL (85-140) L 10/26/23 Progesterone 4.03 ng/mL 08/25/22 HCG, Qual Positive (Negative) H 06/21/23 Urine Opiates Screen Negative ng/mL (Negative) 08/11/23 Ur Barbiturates Screen Negative ng/mL (Negative) 08/11/23 Ur Phencyclidine Scrn Negative ng/mL (Negative) 08/11/23 Ur Amphetamines Screen Negative ng/mL (Negative) 08/11/23 U Benzodiazepines Scrn Negative ng/mL (Negative) 08/11/23 Urine Cocaine Screen Negative ng/mL (Negative) 08/11/23 U Marijuana (THC) Screen Negative ng/mL (Negative) 08/11/23 Micro Urine Specimen 08/11/23 Pap Smear Interpret See note A 08/11/23 A&P Assessment and plan (1) Supervision of other normal : (2) Breech presentation, antepartum: 39 w 1 d Fetus in breech presentation Cx at 6 cm Will proceed with for delivery Procedure and risks discussed with patient Risks include, but not limited to, infection, bleeding, injury to internal organs, anesthesia, blood transfusions Patient understands and wants to proceed Qualifiers: Fetus number: single or unspecified fetus Qualified Code(s): O32.1XX0 - Maternal care for breech presentation, not applicable or unspecified Attestations 2 Medical Necessity Statement*: patient at 39 weeks, with active labor Coding Level of Care Code Acute Code for Chg Fwd Diagnoses Supervision of other normal Z34.80 Breech presentation with problem, single or unspecified fetus O32.1XX0 Fetus number: single or unspecified fetus Time Spent (min) 30
--- NOTE | 2024-02-07 12:13 | PM.OP ---
Operative Report Date of procedure: February 07, 2024 Pre-op diagnosis: 39 w 1 d active labor breech presentation Post-op diagnosis: same Post-op findings: vigorous female normal uterus, tubes, and ovaries Procedure done: repeat low-transverse Implants: none Specimens removed/disposition: placenta, discarded Surgeon: Alvarez Chester MD Anesthesia: Spinal Estimated blood loss (mL): 500 Complications: none Condition: stable Disposition: floor Procedure: The patient was taken to the operating room and placed supine in the left lateral tilt position. Spinal anesthesia and a reyna catheter were already in place. Time-out verification was carried Out. The abdomen was prepped and draped in the usual sterile fashion. A Pfannenstiel incision was made and carried down through skin and subcutaneous tissue and fascia. The fascial incision was extended laterally with Galindo scissors. The fascia was from the underlying rectus muscles. The rectus muscles were split in the midline. The peritoneum was entered bluntly avoiding underlying organs. A bladder flap was created. An Uriah-O retractor was placed. A low-transverse uterine incision was made and extended laterally and bluntly avoiding the uterine vessels. Clear amniotic fluid was encountered. The baby was delivered in breech presentation atraumatically. Tight nuchal cord noted and reduced. The baby was suctioned, the cord was clamped and cut and the baby was handed to pediatric staff. A segment of cord was obtained for cord gas, cord blood was obtained. The placenta was manually removed intact. The uterine cavity was bluntly curetted with wet laps. The uterine incision was then closed with a continuous interlocking stitch of O-chromic. Adequate hemostasis was seen. Inspection of the uterine incision again showed good hemostasis. The fascia was then closed with a continuous stitch of O-Vicryl. Additional interrupted stitches of O-Vicryl were used for fascial closure. The subcutaneous tissue was irrigated and inspected for hemostasis. The skin was then closed with Insorb itz. Postoperative condition: stable EBL: 500 cc Complications: none Sponge and instruments counts correct x two
--- NOTE | 2024-02-07 15:12 | ANE.PACU2 ---
Inpatient post-anesthesia follow up: Vital signs: Temperature 98.3 F Pulse Rate 66 Respiratory Rate 16 Blood Pressure 99/50 Pulse Oximetry 98 Oxygen Delivery Me thod Room Air Oxygen Flow Rate Fraction of Inspir ed Oxygen Hydration adequate: Yes Nausea and vomiting: No Mental status: Baseline Additional Comments: no apparent anesthetic complications noted
[2024-02-07] MEDS: ketorolac 30 mg/mL INJ IVP ×2 (16:21→22:08)
[2024-02-07] MEDS: dextrose 5%-lactated ringers 1,000 ML 125 ML IV (16:24)
[2024-02-07] MEDS: docusate sodium 100 mg Capsule PO (18:15)
[2024-02-07] MEDS: sodium chloride 0.9% 500 ML 999 ML IV (18:15)
[2024-02-07 22:27] LABS: Hematocrit 40.4 % (36-47); Mean Corpuscular HGB Conc 34.2 g/dL (30-55); Mean Corpuscular Hemoglobin 32.3 pg (27-33); Mean Corpuscular Volume 94.6 fl (85-98); Mean Platelet Volume 12.4 fL (7.4-10.4); Platelet Count 123 10^3/cmm (157-399); Red Blood Count 4.27 10^6/uL (3.85-5.65); Red Cell Distribution Width 13.9 % (12.1-15.1)
[2024-02-08 04:04] VITALS: BP 105/56; PULSE 74
[2024-02-08] MEDS: ketorolac 30 mg/mL INJ IVP ×2 (04:04→09:22)
[2024-02-08] MEDS: PRENATAL VIT NO.130/IRON/FOLIC 1 EACH TABLET PO (09:22)
[2024-02-08] MEDS: docusate sodium 100 mg Capsule PO (09:22)
[2024-02-08 09:27] VITALS: BP 115/65; PULSE 82
--- NOTE | 2024-02-08 10:10 | PM.OBGYPN ---
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: Interval history: c/o mild incisional pain no bleeding, nausea, vomiting tolerating PO well caring for infant without any difficulties Labor: Station: -3 Amniotic Membrane Status: Ruptured Monitor Mode: External Contraction Pattern: Irregular Status: Category I Vitals/I&O/Wt Last Vital Signs Temp 98.0 F 02/08/24 17:00 Pulse 67 02/08/24 17:00 Resp 16 02/08/24 17:00 BP 129/72 02/08/24 17:00 Pulse Ox 97 02/07/24 19:40 O2 Del Method Room Air 02/07/24 19:40 Physical Exam Narrative: afebrile, VS normal comfortable, awake, alert Lungs: clear Cor: RRR Abd: soft, nondistended, nontender fundus firm wound clean and dry Ext: normal Urinary Catheter Management: Reyna: Cath Placed During This Visit: yes, but has since been removed by the nurse Reason for Continuing Indwelling Catheter: Decision to DC Catheter Urinary Catheter Date of Insertion: 02/07/24 Urinary Catheter Time of Insertion: 09:38 Date Urinary Catheter Removed: 02/08/24 Time Urinary Catheter Discontinued: 10:30 Data 02/07/24 22:21 A&P Assessment and plan (1) S/P : POD #1 RCS doing well continue postop care remove reyna ambulate Attestations Medical Necessity Statement*: patient s/p , POD #1 Coding Level of Care Code Acute Code for Chg Fwd Diagnoses S/P Z98.891 Time Spent (min) 20
[2024-02-08] MEDS: ibuprofen 800 mg tablet PO (15:43)
[2024-02-08 16:51] VITALS: BP 129/72; PULSE 67
[2024-02-08] MEDS: HYDROcodone-acetaminophen 5-325 mg Tablet PO (16:57)
[2024-02-08 17:00] VITALS: BP 129/72; PULSE 67; RESP 16; TEMP 36.7
--- NOTE | 2024-02-08 17:35 | P.PN_ITS ---
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: Interval history: no c/o eating, voiding, ambulating well no pain, bleeding patient wants to go home without any difficulties Labor: Station: -3 Amniotic Membrane Status: Ruptured Monitor Mode: External Contraction Pattern: Irregular Status: Category I Vitals/I&O/Wt Last Vital Signs Temp 98.0 F 02/08/24 17:00 Pulse 67 02/08/24 17:00 Resp 16 02/08/24 17:00 BP 129/72 02/08/24 17:00 Pulse Ox 97 02/07/24 19:40 O2 Del Method Room Air 02/07/24 19:40 Physical Exam 2 Narrative: comfortable afebrile, VS normal Abd: soft, nontender wound clean and dry Ext: normal Urinary Catheter Management: [place]: Cath Placed During This Visit: yes, but has since been removed by the nurse Reason for Continuing Indwelling Catheter: Decision to DC Catheter Urinary Catheter Date of Insertion: 02/07/24 Urinary Catheter Time of Insertion: 09:38 Date Urinary Catheter Removed: 02/08/24 Time Urinary Catheter Discontinued: 10:30 Data 02/07/24 22:21 A&P Assessment and plan (1) S/P : POD #1 RCS doing well patient wants to go home discharge home today instructions and precautions given call/return if fever, chills, nausea, vomiting, headaches, abdominal pain, bleeding, inability to void, swelling, leg pain; feelings of depression or mood changes; wound redness, swelling, or discharge f/u in 1 week or PRN Attestations 2 Medical Necessity Statement*: patient s/p , plan discharge to home today Coding Level of Care Code Acute Code for Chg Fwd Diagnoses S/P Z98.891 Time Spent (min) 20
--- NOTE | 2024-02-08 17:45 | PM.OBGYDC ---
Discharge Providers COPYHOLDER Date of Admission: 02/07/24 08:30 Date of Discharge: 02/08/24 Attending Provider at Admission: Alvarez Chester MD Attending Provider at Discharge: Alvarez Chester MD Consults: none Primary COPYHOLDER: José Antonio Cardenas MD Primary Care Provider: Maria Ines Mcgregor MD Diagnoses at Discharge Discharge Diagnosis (1) S/P : Details from hospital stay: patient at 39 w 1 d, admitted with active labor, fetus in breech presentation patient with h/o one previous , followed by a successful patient underwent repeat low-transverse without any complications did well postoperatively patient requested to go home on first postoperative day patient was discharged to home Status: Acute Reason for Visit Reason for Visit: Possible ROM Brief History: patient at 39 w 1 d, admitted with active labor, fetus in breech presentation Hospital Course Hospital Course patient at 39 w 1 d, admitted with active labor, fetus in breech presentation patient with h/o one previous , followed by a successful patient underwent repeat low-transverse without any complications did well postoperatively patient requested to go home on first postoperative day patient was discharged to home Information Peripartum Data: Delivery Method: complications: none Physical Exam Narrative: comfortable afebrile, VS normal Abd: soft, nontender wound clean and dry Ext: normal Urinary Catheter Management: [place]: Cath Placed During This Visit: yes, but has since been removed by the nurse Reason for Continuing Indwelling Catheter: Decision to DC Catheter Urinary Catheter Date of Insertion: 02/07/24 Urinary Catheter Time of Insertion: 09:38 Date Urinary Catheter Removed: 02/08/24 Time Urinary Catheter Discontinued: 10:30 History History History 12 Term 5 0 Miscarriages/Ectopic 6 Living Children 5 Discharge Data Studies Completed and Pending Laboratory Results WBC 8.00 10^3/uL (3.29-11.43) 02/07/24 22:21 RBC 4.27 10^6/uL (3.85-5.65) 02/07/24 22:21 Hgb 13.80 g/dL (11.27-16.99) 02/07/24 22:21 Hct 40.4 % (36-47) 02/07/24 22:21 MCV 94.6 fl (85-98) 02/07/24 22:21 MCH 32.3 pg (27-33) 02/07/24 22:21 MCHC 34.2 g/dL (30-55) 02/07/24 22:21 RDW 13.9 % (12.1-15.1) 02/07/24 22:21 Plt Count 123 10^3/cmm (157-399) L 02/07/24 22:21 MPV 12.4 fL (7.4-10.4) H 02/07/24 22:21 Neut % (Auto) 74.9 % 02/07/24 08:40 Lymph % (Auto) 17.4 % 02/07/24 08:40 [place] % (Auto) 5.7 % 02/07/24 08:40 Eos % (Auto) 0.6 % 02/07/24 08:40 Baso % (Auto) 0.5 % 02/07/24 08:40 Neut # (Auto) 6.44 10^3/uL (1.8-7.7) 02/07/24 08:40 Lymph # (Auto) 1.5 10^3/uL (0.8-4.8) 02/07/24 08:40 [place] # (Auto) 0.5 10^3/uL (0.2-0.9) 02/07/24 08:40 Eos # (Auto) 0.1 10^3/uL (0.0-0.8) 02/07/24 08:40 Baso # (Auto) 0.0 10^3/uL (0.0-0.1) 02/07/24 08:40 Nucleated RBC % (auto) 0 % 02/07/24 08:40 Nucleated RBCs # 0.0 /100WBC 02/07/24 08:40 Blood Type O Positive 02/07/24 08:40 Rho(D) Type Rh positive 02/07/24 08:40 Antibody Screen Negative 02/07/24 08:40 Procedures Performed repeat low-transverse Vitals Last Vital Signs Temp 98.0 F 02/08/24 17:00 Pulse 67 02/08/24 17:00 Resp 16 02/08/24 17:00 BP 129/72 02/08/24 17:00 Pulse Ox 97 02/07/24 19:40 O2 Del Method Room Air 02/07/24 19:40 Results Labs OB ([facility]): Obstetrics US 01/19/24 Blood Type O Positive 02/07/24 Antibody Screen Negative 02/07/24 Hct 40.4 % (36-47) 02/07/24 Hgb 13.80 g/dL (11.27-16.99) 02/07/24 Rho(D) Type Rh positive 02/07/24 Plt Count 123 10^3/cmm (157-399) L 02/07/24 Hep Bs Antigen Non-reactive (Nonreactive) 08/11/23 Hepatitis C Antibody Non-reactive (Nonreactive) 08/11/23 Rubella IgG Antibody 64.2 IU/mL (0.0-10.0) H 08/11/23 RPR Nonreactive (Nonreactive) 08/11/23 HIV 1&2 Ab & HIV 1 Ag Non-reactive (Non-Reactiv) 08/11/23 TSH 1.14 uIU/mL (0.27-4.20) 08/25/22 C.trachomatis RNA (TMA) Not detected (NOT DETECTED) 08/31/23 N.gonorrhoeae RNA (TMA) Not detected (NOT DETECTED) 08/31/23 T. vaginalis Amp RNA Not detected (NOT DETECTED) 08/31/23 Chlamydia/GC Comment See note 08/31/23 Cystic Fibrosis Screen Negative 08/11/23 Glucose 1 Hr 50 gm 82 mg/dL (85-140) L 10/26/23 Progesterone 4.03 ng/mL 08/25/22 HCG, Qual Positive (Negative) H 06/21/23 Urine Opiates Screen Negative ng/mL (Negative) 08/11/23 Ur Barbiturates Screen Negative ng/mL (Negative) 08/11/23 Ur Phencyclidine Scrn Negative ng/mL (Negative) 08/11/23 Ur Amphetamines Screen Negative ng/mL (Negative) 08/11/23 U Benzodiazepines Scrn Negative ng/mL (Negative) 08/11/23 Urine Cocaine Screen Negative ng/mL (Negative) 08/11/23 U Marijuana (THC) Screen Negative ng/mL (Negative) 08/11/23 Micro Urine Specimen 08/11/23 Pap Smear Interpret See note A 08/11/23 Discharge Plan Discharge Patient Disposition: Home Condition: Stable Prescriptions: New hydrocodone-acetaminophen 5-300 mg tablet 1 tab PO BID PRN (Reason: pain) Qty: 30 0RF Continued DHA 200 mg capsule PO promethazine 25 mg tablet 25 mg PO Q6H PRN (Reason: headache) Qty: 30 0RF Rx Instructions: take 1-2 tabs as needed Discharge Orders: Discharge Order (Routine); Ordered 02/08/24 Ordered By: Alvarez Chester Referrals: Alvarez Chester MD [Physician] - 02/13/24 10:30 am (6 week checkup post scheduled with Dr. Cardenas on March 15 @ 10:30 check in.) Discharge Diet: Usual diet Discharge Activity: Increase activity as tolerated Patient Instructions: Hydrocodone/Acetaminophen (By mouth) (Vicodin, [place], Lortab), Depression (DC), Preeclampsia During (DC), Opioid Safety (DC), Hemorrhage (GEN), OB [facility], OB Discharge Report, OB Food/Drug Interaction Guide, Opioid Safety, OB Home Care, Abnormal Bleeding Discharge Attestations COPYHOLDER Time Spent in Discharge Care*: less than 30 min Coding Level of Care Code Acute Code for Chg Fwd Diagnoses S/P Z98.891 Time Spent (min) 20
== END 2024-02-08 17:20 | disposition home or self-care (01) | DRG 788 ==
LOC: OPOB 09:05 → OBGYN 09:05
PROVIDERS: Admitting Provider Obstetrics & Gynecology; PCP Internal Medicine; Visit Provider Obstetrics & Gynecology
PROC: 10D00Z1 Extraction of Products of Conception, Low, Open Approach (ICD-10-PCS; CPT 59514; principal; 2024-02-07 09:30)
DX: O32.1XX0 Maternal care for breech presentation, not applicable or unspecified (principal); O69.81X0 Labor and delivery complicated by cord around neck, without compression, not applicable or unspecified; Z3A.39 39 weeks gestation of pregnancy; Z37.0 Single live birth; O34.211 Maternal care for low transverse scar from previous cesarean delivery; N85.8 Other specified noninflammatory disorders of uterus
CPT/HCPCS: 36415; 51702; 59025; 59409; 83986; 85025; 85027; 86850; 86900; 96374; 96376; 99211; J1580; J1885; J2274; J2371; J2405; J2590; J2765; J3010; J3490; J7040; J7120; J7121

== ENCOUNTER → 2024-03-15 11:29 | Outpatient (BNVA) | payer MEDICAID, SELFPAY | PROVIDERS: PCP Internal Medicine; Visit Provider Obstetrics & Gynecology | DX: Z12.4 Encounter for screening for malignant neoplasm of cervix (principal); Z39.2 Encounter for routine postpartum follow-up | CPT/HCPCS: 87624 ==